=== PATIENT | male | born 1985 | race Caucasian/White ===

== ENCOUNTER 2020-10-20 17:57 | Emergency (ER) | payer OTHER ==
[~2020-10-20 17:57] MED LIST: CORTIZONE-1057 GM TP; LOPRESSOR 25 MG25 MG PO; METOPROLOL SUCC50 MG PO; NORCO 5-325 TA1 EACH PO; PREDNISONE 50 M50 MG PO; ZOFRAN4 MG PO; ZYVOX600 MG PO
[2020-10-20 18:51] LABS: HEMOGLOBIN 13.9 gm/dl (14.0-17.5); RED BLOOD COUNT 4.73 M/UL (4.20-5.50); WHITE BLOOD COUNT 10.6 K/UL (4.5-11.0)
[2020-10-20 19:08] LABS: BUN/CREATININE RATIO 9 (0-10)
[2020-10-20] MEDS ORDERED: CLEOCIN HCL150 MG PO (20:31)
== END 2020-10-20 20:28 | disposition home or self-care (01) ==
LOC: ER1 17:57
DX: L03.115 Cellulitis of right lower limb (principal); I10 Essential (primary) hypertension
CPT/HCPCS: 80053; 83605; 85025; 99283